=== PATIENT | male | born 1985 | race Caucasian/White ===

== ENCOUNTER → 2017-03-05 | Outpatient (CLI) | payer BC ==
[~2017-03-05] VITALS: Ht 180.3 cm; Wt 79.6 kg
[~2017-03-05] MED LIST: BACLOFEN20 MG PO; BUPRENORPHINE HC2 MG SL; BUTRANS1 EAC1 TD; CLONAZEPAM 1 MG1 M1 PO; NORCO 5-325 TA1 EACH PO; NUCYNTA50 MG PO; TRAMADOL 50 MG50 MG PO; ZANAFLEX4 MG PO
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
[2017-03-05 08:47] VITALS: BP 132/84
== END ==
LOC: PAIN 03-04 06:47
DX: M54.2 Cervicalgia (principal); M47.812 Spondylosis without myelopathy or radiculopathy, cervical region; M50.20 Other cervical disc displacement, unspecified cervical region; G89.29 Other chronic pain; Z87.891 Personal history of nicotine dependence